=== PATIENT | female | born 1945 | race Caucasian/White ===

== ENCOUNTER 2019-08-25 10:46 | Emergency (ER) | payer MEDICARE, OTHER ==
[~2019-08-25] VITALS: Ht 160 cm; Wt 80.9 kg
[2019-08-25] MEDS ORDERED: ACETAMINOPHEN 500 MG TAB (TYLENOL) PO ONE (11:15)
[2019-08-25] MEDS ORDERED: MECLIZINE 25 MG (ANTIVERT) TAB PO ONE (11:15)
[2019-08-25] MEDS ORDERED: ONDANSETRON 4 MG (ZOFRAN) ORAL DISSOLVE TAB PO STA (11:16)
--- NOTE | 2019-08-25 11:19 | ED General ---
General Chief Complaint: Dizziness/Syncope Stated Complaint: DIZZINESS; HEADACHE; SHAKY Source of Information: Patient Exam Limitations: No Limitations History of Present Illness Date Seen by Provider: Aug 25, 2019 Time Seen by Provider: 11:12 Initial Comments Patient presents with onset of dizziness about 9 o'clock this morning. States she was just sitting and watching TV. Sensation of feeling off balance, worse when she stands and exacerbated by turning her head. Admits she does have a history of vertigo (Menierres), but hasn't had it for many years and does not recall feeling like this. Does have some slight nausea without any vomiting. Denies any recent illness, nasal congestion, ear pain. Does have a slight frontal headache without any visual changes. Denies any weakness, difficulty with speech or pain. Allergies and Home Medications Allergies Coded Allergies: No Known Drug Allergies (Unverified , 08/25/19) Patient Home Medication List Home Medication List Reviewed: Yes Review of Systems Review of Systems Constitutional: see HPI, dizziness; No fever, No malaise, No weakness EENTM: No ear pain, No blurred vision, No double vision, No hoarseness, No mouth pain, No mouth swelling, No nose congestion, No nose pain, No throat pain Respiratory: No cough, No dyspnea on exertion, No short of breath Cardiovascular: No chest pain, No palpitations Gastrointestinal: No abdominal pain, No loss of appetite; nausea; No vomiting Musculoskeletal: No back pain, No neck pain Psychiatric/Neurological: Headache; Denies Numbness, Denies Paresthesia, Denies Pre-Existing Deficit, Denies Seizure, Denies Tingling, Denies Tremors, Denies Weakness Past Cthipba-Hsfdib-Ttjoum Hx Past Med/Social Hx: Reviewed Nursing Past Med/Soc Hx Patient Social History Recent Foreign Travel: No Physical Exam Vital Signs Vital Signs - First Documented 08/25/19 12:13 Temp 36.3 Pulse 67 Resp 18 B/P (MAP) 156/69 (98) Pulse Ox 94 O2 Delivery Room Air Capillary Refill : Height, Weight, BMI Height: '" Weight: lbs. oz. kg; BMI Method: General Appearance: WD/WN Eyes: Bilateral Eye Normal Inspection, Bilateral Eye PERRL, Bilateral Eye EOMI HEENT: PERRL/EOMI, TMs Normal, Normal ENT Inspection, Pharynx Normal, Moist Mucous Membranes Neck: Full Range of Motion, Normal Inspection, Non Tender, Supple Respiratory: Chest Non Tender, Lungs Clear, Normal Breath Sounds Cardiovascular: Regular Rate, Rhythm, No Edema, Normal Peripheral Pulses Gastrointestinal: Non Tender, Soft Extremity: Normal Capillary Refill, Normal Inspection, No Pedal Edema Neurologic/Psychiatric: Alert, Oriented x3, No Motor/Sensory Deficits, Normal Mood/Affect, 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 as Tested; No Aphasia, No Motor Weakness, No Sensory Deficit Skin: Normal Color, Warm/Dry Progress/Results/Core Measures Suspected Sepsis SIRS Temperature: Pulse: Respiratory Rate: Blood Pressure / Mean: Results/Orders My Orders Orders - ROJUANSTINEAURORA DO Acetaminophen Tablet (Tylenol Tablet) (08/25/19 11:15) Meclizine Tablet (Antivert Tablet) (08/25/19 11:15) Ct Head Wo (08/25/19 11:14) Ondansetron Oral Dissolve Tab (Zofran (08/25/19 11:16) Medications Given in ED Current Medications Medications Dose Ordered Sig/Bandar Route Start Time Stop Time Status Last Admin Dose Admin Acetaminophen 500 mg ONCE ONCE PO 08/25/19 11:15 08/25/19 11:16 DC 08/25/19 11:46 500 MG Meclizine HCl 25 mg ONCE ONCE PO 08/25/19 11:15 08/25/19 11:16 DC 08/25/19 11:46 25 MG Vital Signs/I&O 08/25/19 12:13 Temp 36.3 Pulse 67 Resp 18 B/P (MAP) 156/69 (98) Pulse Ox 94 O2 Delivery Room Air Capillary Refill : Progress Note : Progress Note feeling much better, symptoms resolved after meds given. Discussed no acute findings on CT and f/u w PCP if not improving or ER sooner if progression Departure Impression Primary Impression: Vertigo Disposition: 01 HOME, SELF-CARE Condition: Improved Departure-Patient Inst. Referrals: SELF,DANYEL SIMS (PCP) Primary Care Physician KEENA DAWSON APRN (Family) Primary Care Physician Patient Instructions: Vertigo (a Type of Dizziness) (DC) Scripts Meclizine HCl (Meclizine HCl) 25 Mg Tablet 25 MG PO Q6H PRN for VERTIGO, #20 TAB Prov: AURORA MANCILLA DO 08/25/19 AURORA MANCILLA DO Aug 25, 2019 11:19 POS
--- NOTE | 2019-08-25 12:07 | Diagnostic Imaging Report ---
INDICATION: Dizziness and weakness. TECHNIQUE: Multiple contiguous axial images were obtained through the brain without the use of intravenous contrast. Auto Exposure Controls were utilized during the CT exam to meet ALARA standards for radiation dose reduction. COMPARISON: There is no prior study for comparison. FINDINGS: There is mild diffuse atrophic change. There are mild low-density changes in the deep white matter, compatible with chronic ischemic change. There is no acute hemorrhage, mass effect, or acute intracranial finding. The ventricles are normal in size. The calvarial windows are unremarkable. IMPRESSION: Mild atrophy and chronic change in the deep white matter, compatible with chronic ischemic change. No acute intracranial abnormality is seen. Dictated by: Dictated on workstation # [id number]
[2019-08-25] MEDS ORDERED: MECL-106 PO (12:21)
[2019-08-25 12:33] VITALS: BP 132/64
== END 2019-08-25 12:33 | disposition home or self-care (01) ==
LOC: EDUNIT# 10:46 → ER FS 10:48
DX: R42 Dizziness and giddiness (principal)
CPT/HCPCS: 70450

== ENCOUNTER 2022-03-16 12:09 | Emergency (ER) | payer MEDICARE, OTHER ==
[~2022-03-16] VITALS: Ht 160 cm; Wt 80.2 kg
[~2022-03-16 12:09] MED LIST: MECL-149 PO
[2022-03-16] MEDS ORDERED: IBUPROFEN 600 MG (MOTRIN) TAB PO ONE (12:30)
[2022-03-16] MEDS ORDERED: ACETAMINOPHEN 500 MG TAB (TYLENOL) PO ONE (12:30)
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
[2022-03-16 13:08] VITALS: BP 169/68
== END 2022-03-16 13:07 | disposition home or self-care (01) ==
LOC: EDUNIT# 12:09 → ER FS 12:09
DX: S46.911A Strain of unspecified muscle, fascia and tendon at shoulder and upper arm level, right arm, initial encounter (principal); S20.211A Contusion of right front wall of thorax, initial encounter; V49.40XA Driver injured in collision with unspecified motor vehicles in traffic accident, initial encounter
CPT/HCPCS: 71046; 73030

== ENCOUNTER 2022-08-13 09:04 | Emergency (ER) | payer MEDICARE, OTHER ==
[~2022-08-13] VITALS: Ht 160 cm; Wt 79.8 kg
[2022-08-13 09:11] VITALS: BP 132/70
--- NOTE | 2022-08-13 09:28 | ED General ---
General Chief Complaint: Allergic Reaction Stated Complaint: RASH; HEADACHE; LT EYE SWELLING Source of Information: Patient Exam Limitations: No Limitations History of Present Illness Date Seen by Provider: Aug 13, 2022 Time Seen by Provider: 09:20 Initial Comments 77-year-old female presents to the emergency department today for rash to her left upper face and eye. Symptoms started on and have been progressive. She is immunocompromised due to medication she takes after a kidney transplant. She has severe pain in her left face and her eyes matted shut and she cannot open it. She denies any fevers or chills. No other symptoms at this time. Allergies and Home Medications Allergies Coded Allergies: No Known Drug Allergies (Unverified , 08/25/19) Patient Home Medication List Home Medication List Reviewed: Yes Acyclovir (Acyclovir) 800 Mg Tablet, 800 MG PO 5XD Prescribed by: YENNI CHRISTENSEN MD on 08/13/22 0943 Hydrocodone Bit/Acetaminophen (HYDROcodone/APAP 7.5/325 TAB) 1 Ea Tablet, 1 EA PO Q6H Prescribed by: YENNI CHRISTENSEN MD on 08/13/22 0943 Meclizine HCl (Meclizine HCl) 25 Mg Tablet, 25 MG PO Q6H PRN for VERTIGO Prescribed by: AURORA MANCILLA on 08/25/19 1221 Prednisone (Prednisone) 50 Mg Tab, 50 MG PO DAILY Prescribed by: YENNI CHRISTENSEN MD on 08/13/22 0943 Review of Systems Review of Systems Constitutional: no symptoms reported EENTM: eye pain Respiratory: no symptoms reported Cardiovascular: no symptoms reported Gastrointestinal: no symptoms reported Genitourinary: no symptoms reported Musculoskeletal: no symptoms reported Skin: rash Past Jkgzeps-Hbahxq-Jekxhx Hx Patient Social History Tobacco Use?: No Use of E-Cig and/or Vaping dev: No Substance use?: No Alcohol Use?: No Immunizations Up To Date First/Initial COVID19 Vaccinat: YES Second COVID19 Vaccination Uzair: YES Seasonal Allergies Seasonal Allergies: No Past Medical History Surgery/Hospitalization HX: KIDNEY TRANSPLANT 2006 Surgeries: Yes (Kidney transplant 2002) Nephrectomy Respiratory: No Cardiac: No Neurological: No Genitourinary: Yes Renal Failure Gastrointestinal: No Musculoskeletal: No Endocrine: No HEENT: No Cancer: No Psychosocial: No Integumentary: No Blood Disorders: No Family Medical History Reviewed Nursing Family Hx No Pertinent Family Hx Physical Exam Vital Signs Vital Signs - First Documented 08/13/22 09:11 Temp 35.5 Pulse 100 Resp 20 B/P (MAP) 132/70 (90) Pulse Ox 100 O2 Delivery Room Air Capillary Refill : Height, Weight, BMI Height: '" Weight: lbs. oz. kg; 31.00 BMI Method: General Appearance: No Apparent Distress, WD/WN HEENT: TMs Normal, Normal ENT Inspection, Pharynx Normal, Other (Left eye is matted shut. When opened the conjunctive a is injected. Pupils equally round and reactive. There is some mucopurulent drainage.) Neck: Full Range of Motion, Normal Inspection, Non Tender, Supple Respiratory: Chest Non Tender, Lungs Clear, Normal Breath Sounds, No Accessory Muscle Use, No Respiratory Distress Cardiovascular: Regular Rate, Rhythm, No Edema, No Gallop, No JVD, No Murmur, Normal Peripheral Pulses Gastrointestinal: Normal Bowel Sounds, No Organomegaly, No Pulsatile Mass, Non Tender, Soft Back: Normal Inspection Extremity: Normal Capillary Refill, Normal Inspection, Normal Range of Motion, Non Tender, No Calf Tenderness Skin: Other (Diffuse vesicular rash left anterior face in the V1 distribution. Does not cross the midline. Does include the left eyelid and eye itself. No otic involvement) Lymphatic: No Adenopathy Progress/Results/Core Measures Suspected Sepsis SIRS Temperature: Pulse: Respiratory Rate: Blood Pressure / Mean: Results/Orders My Orders Orders - YENNI CHRISTENSEN DO Fentanyl Inj (Sublimaze Injection) (08/13/22 09:45) Medications Given in ED Current Medications Medications Dose Ordered Sig/Bandar Route Start Time Stop Time Status Last Admin Dose Admin Fentanyl Citrate 50 mcg ONCE ONCE IM 08/13/22 09:45 08/13/22 09:46 DC 08/13/22 09:39 50 MCG Vital Signs/I&O 08/13/22 09:11 Temp 35.5 Pulse 100 Resp 20 B/P (MAP) 132/70 (90) Pulse Ox 100 O2 Delivery Room Air Capillary Refill : Departure Communication (Admissions) Patient is hemodynamically stable. Concerning because she is immunocompromised from medicines related to her kidney transplant years ago. She does have left ocular involvement. Unclear the depth of the involvement at this time. I spoke with Dr. Levi in [place] [facility] who is an tank truck milk receiver. They will see her at 1030. She will be discharged from here and go straight there. I did give her the fentanyl injection for pain. Also prescribed prednisone, acyclovir and pain medication. Discharged in stable condition. I did advise them that should the tank truck milk receiver be concerned that they may require admission to the hospital however I am unable to make that determination with the ocular equipment I have here. They state understanding. They are discharged in stable condition peer Impression Primary Impression: Herpes zoster conjunctivitis of left eye Additional Impression: Shingles Qualified Codes: B02.31 - Zoster conjunctivitis Disposition: HOME, SELF-CARE Condition: Stable Departure-Patient Inst. Referrals: ZEINAB TATUM APRN (PCP) Primary Care Physician [facility] (Family) Primary Care Physician Patient Instructions: Shinru (DC) Add. Discharge Instructions: Take the antiviral medicine, steroid and pain medicine as prescribed. The pain medicine may make you drowsy so do not drive or make important decisions while taking that. I have scheduled you an eye appointment with Dr. Jimmy Levi. This is at 1030. The address is [address] [place] [address] in [facility]. The phone number [phone] leave from here and go there. Return to the emergency department for any severe concerns. Follow-up with your primary physician for any nonemergent needs All discharge instructions reviewed with patient and/or family. Voiced understanding. Scripts Hydrocodone Bit/Acetaminophen (HYDROcodone/APAP 7.5/325 TAB) 1 Ea Tablet 1 EA PO Q6H for Pain for 3 Days, #12 TAB Prov: YENNI CHRISTENSEN DO 08/13/22 Prednisone (Prednisone) 50 Mg Tab 50 MG PO DAILY for 5 Days, #5 TAB Prov: YENNI CHRISTENSEN DO 08/13/22 Acyclovir (Acyclovir) 800 Mg Tablet 800 MG PO 5XD for 7 Days, #35 TAB Prov: YENNI CHRISTENSEN DO 08/13/22 YENNI CHRISTENSEN DO Aug 13, 2022 09:28
[2022-08-13] MEDS ORDERED: ACYC-112 PO (09:43)
[2022-08-13] MEDS ORDERED: HYDR-34 PO (09:43)
[2022-08-13] MEDS ORDERED: PRD50T PO (09:43)
[2022-08-13] MEDS ORDERED: fentaNYL INJ 100 MCG/2 ML AMP IM ONE (09:45)
== END 2022-08-13 09:46 | disposition home or self-care (01) ==
LOC: EDUNIT# 09:04 → ER FS 09:06
DX: B02.31 Zoster conjunctivitis (principal)
CPT/HCPCS: 99284

== ENCOUNTER 2022-09-23 15:03 | Emergency (ER) | payer MEDICARE ==
[~2022-09-23] VITALS: Ht 160 cm; Wt 73.7 kg
[~2022-09-23 15:03] MED LIST changes: +ACYC-112 PO; +HYDR-34 PO; +PRD50T PO
--- NOTE | 2022-09-23 15:29 | ED General ---
General Stated Complaint: CONFUSED/WEAKNESS History of Present Illness Date Seen by Provider: Sep 23, 2022 Time Seen by Provider: 15:25 Initial Comments 77-year-old female with recent shingles/ kidney transplant, is here with complaints of altered mental status by her family, and frequency of micturition over the past 2 days. Patient's daughters are stating that patient is saying things that do not make sense, for example handing over the flashlight stating that it is her phone etc. Family states that patient is normally sharp and does not have any confusion. Patient has not been drinking much water at all over the past few days. Denies fever, diarrhea, abdominal pain, chest pain, palpitations, headache. Patient had a recent shingles infection on the left side of her face including her eye and has been treated for it and is seeing ophthalmology. Allergies and Home Medications Allergies Coded Allergies: No Known Drug Allergies (Unverified , 08/25/19) Patient Home Medication List Home Medication List Reviewed: Yes Acyclovir (Acyclovir) 800 Mg Tablet, 800 MG PO 5XD Prescribed by: YENNI CHRISTENSEN MD on 08/13/22 0943 Hydrocodone Bit/Acetaminophen (HYDROcodone/APAP 7.5/325 TAB) 1 Ea Tablet, 1 EA PO Q6H Prescribed by: YENNI CHRISTENSEN MD on 08/13/22 0943 Meclizine HCl (Meclizine HCl) 25 Mg Tablet, 25 MG PO Q6H PRN for VERTIGO Prescribed by: AURORA MANCILLA on 08/25/19 1221 Prednisone (Prednisone) 50 Mg Tab, 50 MG PO DAILY Prescribed by: YENNI CHRISTENSEN MD on 08/13/22 0943 Review of Systems Review of Systems Constitutional: no symptoms reported EENTM: no symptoms reported Respiratory: no symptoms reported Cardiovascular: no symptoms reported Gastrointestinal: no symptoms reported Genitourinary: frequency Musculoskeletal: no symptoms reported Skin: no symptoms reported Psychiatric/Neurological: Other (Confusion) Hematologic/Lymphatic: No Symptoms Reported Immunological/Allergic: no symptoms reported Past Oaglgoi-Azszwe-Eplwws Hx Immunizations Up To Date First/Initial COVID19 Vaccinat: YES Second COVID19 Vaccination Uzair: YES Third COVID19 Vaccination Date: YES Seasonal Allergies Seasonal Allergies: No Past Medical History Surgery/Hospitalization HX: KIDNEY TRANSPLANT 2006 Surgeries: Yes (Kidney transplant 2002) Nephrectomy Respiratory: No Cardiac: No Neurological: No Genitourinary: Yes Renal Failure Gastrointestinal: No Musculoskeletal: No Endocrine: No HEENT: No Cancer: No Psychosocial: No Integumentary: No Blood Disorders: No Family Medical History No Pertinent Family Hx Physical Exam Vital Signs Vital Signs - First Documented 09/23/22 15:20 Temp 36.8 Pulse 103 Resp 16 B/P (MAP) 146/74 (98) Capillary Refill : Height, Weight, BMI Height: '" Weight: lbs. oz. kg; 31.00 BMI Method: General Appearance: No Apparent Distress, WD/WN Eyes: Left Eye Other (Left high has chronic issues and has been treated for shingles, has conjunctival erythema and blurry vision which has been going on for the past couple of weeks.) HEENT: PERRL/EOMI, Normal ENT Inspection Neck: Full Range of Motion, Normal Inspection, Non Tender, Supple Respiratory: Chest Non Tender, Lungs Clear, Normal Breath Sounds, No Accessory Muscle Use, No Respiratory Distress Cardiovascular: Regular Rate, Rhythm, No Edema Gastrointestinal: Non Tender, Soft Back: No CVA Tenderness Neurologic/Psychiatric: Alert, No Motor/Sensory Deficits, Normal Mood/Affect, route jumper II-XII Norm as Tested, Other (Oriented x2. Patient is confused at the date. Patient is able to answer all questions and follow commands.) Focused Exam Lactate Level 09/23/22 15:41: Lactic Acid Level 1.48 Lactic Acid Level Laboratory Tests Test 09/23/22 15:41 Lactic Acid Level 1.48 MMOL/L (0.50-2.00) Progress/Results/Core Measures Suspected Sepsis SIRS Temperature: Pulse: Respiratory Rate: Laboratory Tests 09/23/22 15:41: White Blood Count 7.9 Blood Pressure / Mean: 09/23/22 15:41: Lactic Acid Level 1.48 Laboratory Tests 09/23/22 15:41: Creatinine 0.83, INR Comment 0.9, Platelet Count 179, Total Bilirubin 0.7 Results/Orders Lab Results Laboratory Tests Test 09/23/22 15:20 09/23/22 15:41 09/23/22 17:24 Range/Units Urine Color YELLOW Urine Clarity TURBID Urine pH 6.0 5-9 Urine Specific [place] 1.025 H 1.016-1.022 Urine Protein 1+ H NEGATIVE Urine Glucose (UA) NEGATIVE NEGATIVE Urine Ketones 1+ H NEGATIVE Urine Nitrite POSITIVE H NEGATIVE Urine Bilirubin 1+ H NEGATIVE Urine Urobilinogen 0.2 < = 1.0 MG/DL Urine Leukocyte Esterase 2+ H NEGATIVE Urine RBC (Auto) 1+ H NEGATIVE Urine RBC 5-10 H /HPF Urine WBC TNTC H /HPF Urine Squamous Epithelial Cells 2-5 /HPF Urine Crystals NONE /LPF Urine Bacteria LARGE H /HPF Urine Casts NONE /LPF Urine Mucus MODERATE H /LPF Urine Culture Indicated YES White Blood Count 7.9 4.3-11.0 10^3/uL Red Blood Count 4.62 3.80-5.11 10^6/uL Hemoglobin 15.0 11.5-16.0 g/dL Hematocrit 43 35-52 % Mean Corpuscular Volume 94 80-99 fL Mean Corpuscular Hemoglobin 33 25-34 pg Mean Corpuscular Hemoglobin Concent 35 32-36 g/dL Red Cell Distribution Width 12.7 10.0-14.5 % Platelet Count 179 130-400 10^3/uL Mean Platelet Volume 10.2 9.0-12.2 fL Immature Granulocyte % (Auto) 0 % Neutrophils (%) (Auto) 78 H 42-75 % Lymphocytes (%) (Auto) 14 12-44 % Monocytes (%) (Auto) 7 0-12 % Eosinophils (%) (Auto) 1 0-10 % Basophils (%) (Auto) 0 0-10 % Neutrophils # (Auto) 6.1 1.8-7.8 10^3/uL Lymphocytes # (Auto) 1.1 1.0-4.0 10^3/uL Monocytes # (Auto) 0.6 0.0-1.0 10^3/uL Eosinophils # (Auto) 0.0 0.0-0.3 10^3/uL Basophils # (Auto) 0.0 0.0-0.1 10^3/uL Immature Granulocyte # (Auto) 0.0 0.0-0.1 10^3/uL Prothrombin Time 13.0 12.2-14.7 SEC INR Comment 0.9 0.8-1.4 Activated Partial Thromboplast Time 28 24-35 SEC D-Dimer 0.46 0.00-0.49 UG/ML Sodium Level 140 135-145 MMOL/L Potassium Level 3.7 3.6-5.0 MMOL/L Chloride Level 102 98-107 MMOL/L Carbon Dioxide Level 23 21-32 MMOL/L Anion Gap 15 H 5-14 MMOL/L Blood Urea Nitrogen 21 H 7-18 MG/DL Creatinine 0.83 0.60-1.30 MG/DL Estimat Glomerular Filtration Rate 73 BUN/Creatinine Ratio 25 Glucose Level 113 H 70-105 MG/DL Lactic Acid Level 1.48 0.50-2.00 MMOL/L Calcium Level 9.8 8.5-10.1 MG/DL Corrected Calcium 9.4 8.5-10.1 MG/DL Magnesium Level 1.8 1.6-2.4 MG/DL Total Bilirubin 0.7 0.1-1.0 MG/DL Aspartate Amino Transf (AST/SGOT) 14 5-34 U/L Alanine Aminotransferase (ALT/SGPT) 17 0-55 U/L Alkaline Phosphatase 48 40-136 U/L Troponin I < 0.30 <0.30 NG/ML C-Reactive Protein < 0.30 <0.50 MG/DL Total Protein 7.7 6.4-8.2 GM/DL Albumin 4.5 3.2-4.5 GM/DL Influenza Type A (RT-PCR) Not Detected Not Detecte Influenza Type B (RT-PCR) Not Detected Not Detecte SARS-CoV-2 RNA (RT-PCR) Not Detected Not Detecte My Orders Orders - KRISTIAN GARDNER MD Cbc With Automated Diff (09/23/22 15:31) Comprehensive Metabolic Panel (09/23/22 15:31) Fibrin Degradation Products (09/23/22 15:31) Lactic Acid Analyzer (09/23/22 15:31) Magnesium (09/23/22 15:31) Protime With Inr (09/23/22 15:31) Partial Thromboplastin Time (09/23/22 15:31) Ua Culture If Indicated (09/23/22 15:31) Crp Fs (09/23/22 15:31) Troponin I Fs (09/23/22 15:31) Ed Iv/Invasive Line Start (09/23/22 15:50) Urine Culture (09/23/22 15:20) Ceftriaxone 1 Gm Pre-Mix (Rocephin 1 Gm (09/23/22 16:58) Ct Head Wo (09/23/22 17:09) Covid 19 Inhouse Test (09/23/22 17:10) Influenza A And B By Pcr (09/23/22 17:10) Ed Iv/Invasive Line Start (09/23/22 17:18) Ns Iv 1000 Ml (Sodium Chloride 0.9%) (09/23/22 17:30) Vital Signs/I&O 09/23/22 15:20 Temp 36.8 Pulse 103 Resp 16 B/P (MAP) 146/74 (98) Capillary Refill : Progress Note : Progress Note 1. AMS DUE TO ACUTE CYSTITIS WITH HEMATURIA - CT HEAD: no acute findings - COVID test/ RAPID FLU test:negative - CBC/ CMP unremarkable, normal WBC - UA is positive for nitrates/leukocyte esterase/RBC/WBC -Ceftriaxone 1 g IV stat/ NS IVF bolus STAT in ER. Pt much improved with this treatment and mental status improved - Prescription for Cefpodoxime 100mg bid for 7 days -Adequate hydration advised -Follow-up with PCP within the next 3 to 5 days -The patient was seen in the ED, and treated appropriately to presentation at a specific point in time. Patient is informed that there is a possibility that disease and illness can evolve and change in acuity rapidly or slowly after patient is discharged from the ER. Precautionary advice given to the patient for immediate return to ER if symptoms worsen or do not resolve, and to seek e mergency care sooner rather than later. Pt also advised on the importance of PCP follow up and compliance with management and follow up plan with PCP and/or specialist, as this is part of the management plan. Pt verbally expressed understanding. Diagnostic Imaging Diagonstic Imaging: CT Plain Films/CT/US/NM/MRI: head Comments [facility] [place] NAME: JESSA LANGSTON [facility] REC#: [id number] PT STATUS: REG ER : 1945 PHYSICIAN: KRISTIAN GARDNER MD ADMIT DATE: 09/23/22/ER FS Draft Date of Exam:09/23/22 CT HEAD WO PROCEDURE: CT head without contrast. TECHNIQUE: Multiple contiguous axial images were obtained through the brain without the use of intravenous contrast. Auto Exposure Controls were utilized during the CT exam to meet ALARA standards for radiation dose reduction. DATE: September 23, 2022. COMPARISON: CT head August 25, 2019. INDICATION: 77-year-old female, altered mental status. FINDINGS: There are subtle areas of low-attenuation in the periventricular and subcortical white matter which may reflect mild findings of chronic small vessel ischemic disease although are technically nonspecific. The ventricles and cerebral spinal fluid spaces are of normal size and configuration for the patient's age. There is no mass effect or midline shift. There is no acute intracranial hemorrhage. There is no abnormal extra-axial fluid collection. The visualized portions of the paranasal sinuses, mastoid air cells and middle ears are well aerated. IMPRESSION: 1. No identified acute intracranial abnormality. 2. Mild probable findings of chronic small vessel ischemic disease. Dictated on workstation # [id number] Dict: 09/23/221727 Trans: 09/23/221747 [facility] [id number] Interpreted by: SULEMA STEEL MD Electronically signed by: Departure Impression Primary Impression: Altered mental status Qualified Codes: R41.82 - Altered mental status, unspecified Additional Impression: Acute cystitis with hematuria Disposition: 01 HOME, SELF-CARE Condition: Improved Departure-Patient Inst. Referrals: ZEINAB TATUM APRN (PCP) Primary Care Physician [facility] (Family) Primary Care Physician Patient Instructions: Urinary Tract Infection, Adult (DC), Delirium (Confusion), Altered Mental Status (DC), Acute Cystitis (DC) Add. Discharge Instructions: - Prescription for Cefpodoxime 100mg bid for 7 days -Adequate hydration advised -Follow-up with PCP within the next 3 to 5 days Scripts Cefpodoxime Proxetil (Cefpodoxime Proxetil) 100 Mg Tablet 100 MG PO BID for 7 Days, #14 TAB Prov: KRISTIAN GARDNER MD 09/23/22 KRISTIAN GARDNER MD Sep 23, 2022 15:29
[2022-09-23 16:10] LABS: BASOPHILS % (AUTO) 0 % (0-10); EOSINOPHILS % (AUTO) 1 % (0-10); HEMATOCRIT 43 % (35-52); LYMPHOCYTES # (AUTO) 1.1 10^3/uL (1.0-4.0); LYMPHOCYTES % (AUTO) 14 % (12-44); MEAN CORPUSCULAR HEMOGLOBIN 33 pg (25-34); MEAN CORPUSCULAR HGB CONC 35 g/dL (32-36); MEAN CORPUSCULAR VOLUME 94 fL (80-99); MEAN PLATELET VOLUME 10.2 fL (9.0-12.2); MONOCYTES # (AUTO) 0.6 10^3/uL (0.0-1.0); MONOCYTES % (AUTO) 7 % (0-12); NEUTROPHILS # (AUTO) 6.1 10^3/uL (1.8-7.8); NEUTROPHILS % (AUTO) 78 % (42-75); PLATELET COUNT 179 10^3/uL (130-400); WHITE BLOOD COUNT 7.9 10^3/uL (4.3-11.0)
[2022-09-23 16:12] LABS: CLARITY,URINE TURBID; COLOR,URINE YELLOW; GLUCOSE, URINE (UA) NEGATIVE (NEGATIVE); KETONES,URINE 1+ (NEGATIVE); LEUKOCYTE ESTERASE ,URINE 2+ (NEGATIVE); NITRITE,URINE POSITIVE (NEGATIVE); PROTEIN,URINE 1+ (NEGATIVE)
[2022-09-23 16:30] LABS: BACTERIA,URINE LARGE /HPF; BILIRUBIN,URINE 1+ (NEGATIVE); WBC,URINE TNTC /HPF
[2022-09-23 16:50] LABS: FIBRIN DEGRADATION PRODUCTS 0.46 UG/ML (0.00-0.49); INR 0.9 (0.8-1.4)
[2022-09-23 16:51] LABS: ALANINE AMINOTRANSFERASE 17 U/L (0-55); ALKALINE PHOSPHATASE 48 U/L (40-136); BILIRUBIN,TOTAL 0.7 MG/DL (0.1-1.0); BUN/CREATININE RATIO 25; CALCIUM 9.8 MG/DL (8.5-10.1); CARBON DIOXIDE 23 MMOL/L (21-32); CHLORIDE 102 MMOL/L (98-107); CREATININE SERUM 0.83 MG/DL (0.60-1.30); GFR ESTIMATED 73; GLUCOSE 113 MG/DL (70-105); MAGNESIUM 1.8 MG/DL (1.6-2.4); POTASSIUM 3.7 MMOL/L (3.6-5.0); SODIUM 140 MMOL/L (135-145)
[2022-09-23 16:52] LABS: ALBUMIN 4.5 GM/DL (3.2-4.5); TOTAL PROTEIN 7.7 GM/DL (6.4-8.2)
[2022-09-23] MEDS ORDERED: cefTRIAXone 1 GM PRE-MIX 50 ML IV STA (16:58)
[2022-09-23] MEDS ORDERED: NS IV 1000 ML 1,000 ML IV SCH (17:30)
--- NOTE | 2022-09-23 17:48 | Diagnostic Imaging Report ---
PROCEDURE: CT head without contrast. TECHNIQUE: Multiple contiguous axial images were obtained through the brain without the use of intravenous contrast. Auto Exposure Controls were utilized during the CT exam to meet ALARA standards for radiation dose reduction. DATE: September 23, 2022. COMPARISON: CT head August 25, 2019. INDICATION: 77-year-old female, altered mental status. FINDINGS: There are subtle areas of low-attenuation in the periventricular and subcortical white matter which may reflect mild findings of chronic small vessel ischemic disease although are technically nonspecific. The ventricles and cerebral spinal fluid spaces are of normal size and configuration for the patient's age. There is no mass effect or midline shift. There is no acute intracranial hemorrhage. There is no abnormal extra-axial fluid collection. The visualized portions of the paranasal sinuses, mastoid air cells and middle ears are well aerated. IMPRESSION: 1. No identified acute intracranial abnormality. 2. Mild probable findings of chronic small vessel ischemic disease. Dictated by: Dictated on workstation # [id number]
[2022-09-23] MEDS ORDERED: CEFP100T2 PO (18:46)
[2022-09-23 19:18] VITALS: BP 136/72
== END 2022-09-23 19:19 | disposition home or self-care (01) ==
LOC: EDUNIT# 15:03 → ER FS 15:06
DX: R41.82 Altered mental status, unspecified (principal); N30.01 Acute cystitis with hematuria; Z20.822 Contact with and (suspected) exposure to COVID-19; Z28.310 Unvaccinated for COVID-19
CPT/HCPCS: 36415; 70450; 80053; 81000; 83605; 83735; 84484; 85025; 85379; 85610; 85730; 86141; 87088; 87636

== ENCOUNTER 2023-01-31 21:15 | Emergency (ER) | payer MEDICARE ==
[~2023-01-31] VITALS: Ht 160 cm; Wt 75.5 kg
[~2023-01-31 21:15] MED LIST changes: +CEFP100T2 PO
--- NOTE | 2023-01-31 21:19 | ED General ---
General Stated Complaint: AMS History of Present Illness Date Seen by Provider: Jan 31, 2023 Time Seen by Provider: 21:18 Initial Comments 77-year-old female with PMH of early dementia/borderline diabetes, is here with complaints of mild altered mental status as per her daughter. Patient is alert and oriented and able to answer all questions and commands in the ER. However her daughter is stating that she seemed a little bit more confused than her usual dementia. Patient has known recurrent UTIs and so daughter thought it would be best to just come and check if she has any UTI. Patient is able to ambulate without difficulty. Denies fever and chills, cough, upper respiratory symptoms, shortness of breath, chest pain, abdominal pain, flank pain, dysuria or polyuria. Patient does not have any symptoms at all. Patient also does not feel confused as per patient. Allergies and Home Medications Allergies Coded Allergies: No Known Drug Allergies (Unverified , 08/25/19) Patient Home Medication List Home Medication List Reviewed: Yes Acyclovir (Acyclovir) 800 Mg Tablet, 800 MG PO 5XD Prescribed by: YENNI CHRISTENSEN MD on 08/13/22 09 Cefpodoxime Proxetil (Cefpodoxime Proxetil) 100 Mg Tablet, 100 MG PO BID Prescribed by: KRISTIAN GARDNER MD on 09/23/22 1846 Hydrocodone Bit/Acetaminophen (HYDROcodone/APAP 7.5/325 TAB) 1 Ea Tablet, 1 EA PO Q6H Prescribed by: YENNI CHRISTENSEN MD on 08/13/22 09 Meclizine HCl (Meclizine HCl) 25 Mg Tablet, 25 MG PO Q6H PRN for VERTIGO Prescribed by: AURORA MANCILLA on 08/25/19 1221 Prednisone (Prednisone) 50 Mg Tab, 50 MG PO DAILY Prescribed by: YENNI CHRISTENSEN MD on 08/13/22 0943 Review of Systems Review of Systems Constitutional: no symptoms reported EENTM: no symptoms reported Respiratory: no symptoms reported Cardiovascular: no symptoms reported Gastrointestinal: no symptoms reported Genitourinary: no symptoms reported Musculoskeletal: no symptoms reported Skin: no symptoms reported Psychiatric/Neurological: Other Hematologic/Lymphatic: No Symptoms Reported Immunological/Allergic: no symptoms reported Past Ptlmxsf-Baqovu-Uiscse Hx Immunizations Up To Date First/Initial COVID19 Vaccinat: YES Second COVID19 Vaccination Uzair: YES Third COVID19 Vaccination Date: YES Seasonal Allergies Seasonal Allergies: No Past Medical History Surgery/Hospitalization HX: KIDNEY TRANSPLANT 2006 Surgeries: Yes (Kidney transplant 2002) Nephrectomy Respiratory: No Cardiac: No Neurological: No Genitourinary: Yes Renal Failure Gastrointestinal: No Musculoskeletal: No Endocrine: No HEENT: No Cancer: No Psychosocial: No Integumentary: No Blood Disorders: No Family Medical History No Pertinent Family Hx Physical Exam Vital Signs Vital Signs - First Documented 01/31/23 21:22 Temp 37.9 Pulse 111 Resp 20 B/P (MAP) 139/74 (95) Pulse Ox 94 O2 Delivery Room Air Capillary Refill : Height, Weight, BMI Height: '" Weight: lbs. oz. kg; 28.00 BMI Method: General Appearance: No Apparent Distress, WD/WN HEENT: PERRL/EOMI, Normal ENT Inspection Neck: Full Range of Motion, Normal Inspection, Non Tender Respiratory: Chest Non Tender, Lungs Clear, Normal Breath Sounds Cardiovascular: Regular Rate, Rhythm, No Edema Gastrointestinal: Normal Bowel Sounds, Non Tender, Soft Back: No CVA Tenderness Extremity: Normal Range of Motion Neurologic/Psychiatric: Alert, Oriented x3, No Motor/Sensory Deficits, Normal Mood/Affect, supervisor insecticide II-XII Norm as Tested Skin: Normal Color Focused Exam Lactate Level 01/31/23 21:22: Lactic Acid Level Laboratory Tests Test 01/31/23 21:22 Progress/Results/Core Measures Suspected Sepsis SIRS Temperature: Pulse: Respiratory Rate: Laboratory Tests 01/31/23 21:22: White Blood Count 9.3 Blood Pressure / Mean: 01/31/23 21:22: Laboratory Tests 01/31/23 21:22: Platelet Count 156 Results/Orders Lab Results Laboratory Tests Test 01/31/23 21:22 01/31/23 21:27 Range/Units White Blood Count 9.3 4.3-11.0 10^3/uL Red Blood Count 4.54 3.80-5.11 10^6/uL Hemoglobin 14.2 11.5-16.0 g/dL Hematocrit 42 35-52 % Mean Corpuscular Volume 93 80-99 fL Mean Corpuscular Hemoglobin 31 25-34 pg Mean Corpuscular Hemoglobin Concent 34 32-36 g/dL Red Cell Distribution Width 11.9 10.0-14.5 % Platelet Count 156 130-400 10^3/uL Mean Platelet Volume 9.8 9.0-12.2 fL Immature Granulocyte % (Auto) 0 % Neutrophils (%) (Auto) 77 H 42-75 % Lymphocytes (%) (Auto) 12 12-44 % Monocytes (%) (Auto) 9 0-12 % Eosinophils (%) (Auto) 1 0-10 % Basophils (%) (Auto) 0 0-10 % Neutrophils # (Auto) 7.2 1.8-7.8 10^3/uL Lymphocytes # (Auto) 1.1 1.0-4.0 10^3/uL Monocytes # (Auto) 0.9 0.0-1.0 10^3/uL Eosinophils # (Auto) 0.1 0.0-0.3 10^3/uL Basophils # (Auto) 0.0 0.0-0.1 10^3/uL Immature Granulocyte # (Auto) 0.0 0.0-0.1 10^3/uL Urine Color YELLOW Urine Clarity CLEAR Urine pH 5.5 5-9 Urine Specific [place] >=1.030 1.016-1.022 Urine Protein NEGATIVE NEGATIVE Urine Glucose (UA) NEGATIVE NEGATIVE Urine Ketones NEGATIVE NEGATIVE Urine Nitrite NEGATIVE NEGATIVE Urine Bilirubin NEGATIVE NEGATIVE Urine Urobilinogen 0.2 < = 1.0 MG/DL Urine Leukocyte Esterase 1+ H NEGATIVE Urine RBC (Auto) NEGATIVE NEGATIVE Urine RBC 5-10 H /HPF Urine WBC 50-100 H /HPF Urine Squamous Epithelial Cells 10-25 H /HPF Urine Crystals NONE /LPF Urine Bacteria MODERATE H /HPF Urine Casts NONE /LPF Urine Mucus MODERATE H /LPF Urine Yeast FEW H /HPF Urine Culture Indicated YES My Orders Orders - KRISTIAN GARDNER MD Cbc With Automated Diff (01/31/23 21:17) Comprehensive Metabolic Panel (01/31/23 21:17) Lactic Acid Analyzer (01/31/23 21:17) Magnesium (01/31/23 21:17) Ua Culture If Indicated (01/31/23 21:17) Troponin I Fs (01/31/23 21:17) Chest 1 View Ap/Pa Only (01/31/23 21:18) Urine Culture (01/31/23 21:27) Ceftriaxone 1 Gram Iv (01/31/23 21:42) Vital Signs/I&O 01/31/23 21:22 Temp 37.9 Pulse 111 Resp 20 B/P (MAP) 139/74 (95) Pulse Ox 94 O2 Delivery Room Air Capillary Refill : Progress Note : Progress Note 1. MILD AMS:ACUTE CYSTITIS WITH HEMATURIA/ YEAST - CXR: no acute finding - UA is positive for leukocyte esterase, WBC, RBC, bacteria and yeast - CBC: Normal WBC -Troponin undetected -CMP unremarkable -Ceftriaxone 1 g IV stat -Prescription given for cefpodoxime 100 mg twice daily for 7 days -Advised adequate hydration -Follow-up with PCP within the next 3 to 7 days -The patient was seen in the ED, and treated appropriately to presentation at a specific point in time. Patient is informed that there is a possibility that disease and illness can evolve and change in acuity rapidly or slowly after patient is discharged from the ER. Precautionary advice given to the patient for immediate return to ER if symptoms worsen or do not resolve, and to seek emergency care sooner rather than later. Pt also advised on the importance of PCP follow up and compliance with management and follow up plan with PCP and/or specialist, as this is part of the management plan. Pt verbally expressed understanding. Diagnostic Imaging Diagonstic Imaging: Xray Plain Films/CT/US/NM/MRI: chest Comments [facility], [place] NAME: JESSA LANGSTON [facility] REC#: [id number] PT STATUS: REG ER : 1945 PHYSICIAN: KRISTIAN GARDNER MD ADMIT DATE: 01/31/23/ER FS Signed Date of Exam:01/31/23 CHEST 1 VIEW AP/PA ONLY INDICATION: Altered mental status. EXAMINATION: Portable chest at 9:28 PM. FINDINGS: Heart size and pulmonary vascularity are normal. Lungs are clear. There is no effusion or pneumothorax. IMPRESSION: No acute abnormality in the chest. Dictated by: Dictated on workstation # [id number] Dict: 01/31/232135 Trans: 01/31/232206 [id number] Interpreted by: CANELO KULKARNI MD Electronically signed by: CANELO KULKARNI MD 01/31/232206 Departure Impression Primary Impression: Acute cystitis with hematuria Additional Impression: Altered mental status Disposition: 01 HOME, SELF-CARE Condition: Stable Departure-Patient Inst. Referrals: ZEINAB TATUM APRN (PCP) Primary Care Physician [facility] (Family) Primary Care Physician Patient Instructions: Acute Cystitis (DC), Urinary Tract Infections in Adults, Altered Mental Status (DC) Add. Discharge Instructions: -Prescription given for cefpodoxime 100 mg twice daily for 7 days -Advised adequate hydration -Follow-up with PCP within the next 3 to 7 days Scripts Cefpodoxime Proxetil (Cefpodoxime Proxetil) 100 Mg Tablet 100 MG PO Q12H for 7 Days, #14 TAB Prov: KRISTIAN GARDNER MD 01/31/23 KRISTIAN GARDNER MD Jan 31, 2023 21:19
[2023-01-31 21:32] LABS: BILIRUBIN,URINE NEGATIVE (NEGATIVE); CLARITY,URINE CLEAR; COLOR,URINE YELLOW; GLUCOSE, URINE (UA) NEGATIVE (NEGATIVE); KETONES,URINE NEGATIVE (NEGATIVE); LEUKOCYTE ESTERASE ,URINE 1+ (NEGATIVE); NITRITE,URINE NEGATIVE (NEGATIVE); PH,URINE 5.5 (5-9); PROTEIN,URINE NEGATIVE (NEGATIVE)
[2023-01-31 21:35] LABS: BACTERIA,URINE MODERATE /HPF; WBC,URINE 50-100 /HPF; YEAST,URINE FEW /HPF
[2023-01-31 21:39] LABS: BASOPHILS % (AUTO) 0 % (0-10); EOSINOPHILS # (AUTO) 0.1 10^3/uL (0.0-0.3); EOSINOPHILS % (AUTO) 1 % (0-10); HEMATOCRIT 42 % (35-52); HEMOGLOBIN 14.2 g/dL (11.5-16.0); LYMPHOCYTES # (AUTO) 1.1 10^3/uL (1.0-4.0); LYMPHOCYTES % (AUTO) 12 % (12-44); MEAN CORPUSCULAR HEMOGLOBIN 31 pg (25-34); MEAN CORPUSCULAR HGB CONC 34 g/dL (32-36); MEAN CORPUSCULAR VOLUME 93 fL (80-99); MEAN PLATELET VOLUME 9.8 fL (9.0-12.2); MONOCYTES # (AUTO) 0.9 10^3/uL (0.0-1.0); MONOCYTES % (AUTO) 9 % (0-12); NEUTROPHILS # (AUTO) 7.2 10^3/uL (1.8-7.8); NEUTROPHILS % (AUTO) 77 % (42-75); PLATELET COUNT 156 10^3/uL (130-400); WHITE BLOOD COUNT 9.3 10^3/uL (4.3-11.0)
--- NOTE | 2023-01-31 21:41 | Diagnostic Imaging Report ---
INDICATION: Altered mental status. EXAMINATION: Portable chest at 9:28 PM. FINDINGS: Heart size and pulmonary vascularity are normal. Lungs are clear. There is no effusion or pneumothorax. IMPRESSION: No acute abnormality in the chest. Dictated by: Dictated on workstation # [id number]
[2023-01-31] MEDS ORDERED: cefTRIAXone IV/IM 1,000 MG in NS (IVPB) 50 ML IV STA (21:42)
[2023-01-31 21:56] LABS: SODIUM 140 MMOL/L (135-145)
[2023-01-31 21:58] LABS: ALANINE AMINOTRANSFERASE 9 U/L (0-55); ALKALINE PHOSPHATASE 77 U/L (40-136); BILIRUBIN,TOTAL 0.3 MG/DL (0.1-1.0); BUN/CREATININE RATIO 20; CALCIUM 9.3 MG/DL (8.5-10.1); CARBON DIOXIDE 23 MMOL/L (21-32); CHLORIDE 104 MMOL/L (98-107); GFR ESTIMATED 90; GLUCOSE 125 MG/DL (70-105); MAGNESIUM 1.7 MG/DL (1.6-2.4); POTASSIUM 3.9 MMOL/L (3.6-5.0)
[2023-01-31 21:59] LABS: ALBUMIN 4.1 GM/DL (3.2-4.5); TOTAL PROTEIN 7.1 GM/DL (6.4-8.2)
[2023-01-31] MEDS ORDERED: CEFP100T2 PO (22:14)
[2023-01-31 22:25] VITALS: BP 133/70
== END 2023-01-31 22:25 | disposition home or self-care (01) ==
LOC: EDUNIT# 21:15 → ER FS 21:16
DX: R41.82 Altered mental status, unspecified (principal); N30.01 Acute cystitis with hematuria
CPT/HCPCS: 36415; 71045; 80053; 81000; 83605; 83735; 84484; 85025; 87077; 87088; 87186